=== PATIENT | male | born 1985 | race Caucasian/White ===

== ENCOUNTER 2022-05-19 20:47 | Emergency (ER) | payer SELFPAY ==
[~2022-05-19] VITALS: Ht 188 cm; Wt 77.0 kg
[2022-05-19] MEDS ORDERED: KEFLEX500 MG PO (21:58)
[2022-05-19 22:14] VITALS: BP 103/69
== END 2022-05-19 22:19 | disposition home or self-care (01) | DRG 605 ==
LOC: ED 20:47
DX: S91.332A Puncture wound without foreign body, left foot, initial encounter (principal); W45.0XXA Nail entering through skin, initial encounter